=== PATIENT | female | born 1930 | race Caucasian/White ===

== ENCOUNTER 2018-05-02 15:29 | Emergency (ER) | payer MEDICARE ==
[~2018-05-02] VITALS: Ht 175.3 cm; Wt 59.0 kg
--- OUTSIDE RECORDS SUMMARY | 2018-05-02 15:31 | XMS REPORT | Clinical Summary ---
Author Author [facility] Organization [facility] Address Unknown Phone Unavailable Care Team Providers Care Vegetable Sorter Name Role Phone Zenobia Musa MD PCP Allergies Comments Active Allergy Reactions Severity Noted Date Cephalexin Swelling 02/20/2016 Medications End Date Status Medication Sig Dispensed Refills Start Date Active lisinopril 0 (PRINIVIL,ZESTRIL) 20 MG 6 tablet Active fenofibrate (LOFIBRA) 160 0 MG tablet 6 Active IRON,CARBONYL/VIT C/VIT Take by 0 B12/FA (IRON 100 PLUS mouth. ORAL) Active vitamin E 400 UNIT Take 400 0 capsule Units by mouth daily. Active ascorbic acid, vitamin C, Take 100 mg 0 (vitamin C) 100 MG tablet by mouth daily. Active omega-3 fatty acids (FISH Take by 0 OIL) 300 mg capsule mouth. Active cyanocobalamin (B-12 Take 500 mcg 0 DOTS) 500 MCG tablet by mouth daily. Active aspirin (ECOTRIN) 81 MG Take 81 mg by 0 enteric coated tablet mouth daily. Active PNV WITH Take by 0 CA,NO.72/IRON,CARB/FA mouth. ( PLUS ORAL) Active Problems Problem Noted Date Status post total right knee replacement 04/28/2016 Chronic pain of right knee 02/20/2016 Encounters Care Team Description Date Type Specialty Zenobia Musa MD Chronic sinusitis, unspecified location; Allergic rhinitis, unspecified chronicity, unspecified seasonality, unspecified trigger 10/17/2017 Hospital Radiology Encounter Zenobia Musa MD Chronic sinusitis, unspecified location (Primary Dx); Allergic rhinitis, unspecified chronicity, unspecified seasonality, unspecified trigger 10/12/2017 Transcribe Access Orders Zenobia Musa MD Left shoulder pain, unspecified chronicity 09/05/2017 Hospital Radiology Encounter Zenobia Musa MD Left shoulder pain, unspecified chronicity (Primary Dx) 09/05/2017 Transcribe Access Orders Zenobia Musa MD 08/16/2017 Hospital Pulmonology Encounter Zenobia Musa MD H/O: asbestos exposure (Primary Dx) 08/09/2017 Transcribe Access Orders Zenobia Musa MD Asbestos exposure (Primary Dx) 07/28/2017 Transcribe Access Orders after 05/01/2017 Family History Medical History Relation Name Comments No Known Problems Father Alzheimer's disease Mother Relation Name Status Comments Father Mother Social History Date Tobacco Use Types Packs/Day Years Used Former Smoker Cigarettes 0.25 Alcohol Use Drinks/Week oz/Week Comments No Sex Assigned at Date Recorded Not on file Industry Job Start Date Occupation Not on file Not on file Not on file Travel End Travel History Travel Start No recent travel history available. Last Filed Vital Signs Not on file Plan of Treatment Health Maintenance Due Date Last Done Comments SHINGLES VACCINES (1 of 01/01/1982 2) PNEUMOCOCCAL 01/01/1997 POLYSACCHARIDE VACCINE AGE 65 AND OVER PNEUMOCOCCAL-13 01/01/1997 INFLUENZA VACCINE 11/23/2017 Procedures Comments Procedure Name Priority Date/Time Associated Diagnosis CT SINUS WO CONTRAST Routine 10/17/2017 Chronic sinusitis, 8:35 AM CDT unspecified location Allergic rhinitis, unspecified chronicity, unspecified seasonality, unspecified trigger XR SHOULDER 2+ VW LEFT Routine 09/05/2017 Left shoulder pain, 8:14 AM CDT unspecified chronicity DIFFUSION CAPACITY Routine 08/16/2017 H/O: asbestos exposure 10:29 AM CDT BODY PLETHYSMOGRAPHIC Routine 08/16/2017 H/O: asbestos exposure LUNG VOLUMES 10:29 AM CDT SPIROMETRY PRE AND POST Routine 08/16/2017 H/O: asbestos exposure WITH BRONCHILATOR 10:29 AM CDT after 05/01/2017 Results * CT Sinus Wo Contrast (10/17/2017 8:35 AM CDT) Narrative Performed At EXAMINATION:CT SINUS WO CONTRAST HM [facility] CT IMAGING WAS PERFORMED WITH ITERATIVE RECONSTRUCTION TECHNIQUE AND/OR AUTOMATED EXPOSURE CONTROL TO REDUCE RADIATION DOSE. CLINICAL HISTORY:J32.9 Chronic sinusitisunspecified, J30.9 Allergic rhinitisunspecified, SINUSITIS COMPARISON:None. FINDINGS: 1. There is minimal mucosal thickening in the superior medial aspect of the maxillary sinuses bilaterally. There is very mild mucosal thickening in the ethmoid sinus bilaterally and minimal mucosal thickening in the sphenoid sinus. The frontal sinus is clear. 2.There is mild deviation of the nasal septum to the left. There is a short paradoxical configuration of the middle padmini on the right with a somewhat hypoplastic middle pamdini and turbinate on the left. The frontal sinus is relatively hypoplastic. The maxillary sinus ostium, infundibulum and middle meatus are patent bilaterally as are the frontal sinus and sphenoid sinus drainage pathways. 3.There is mild mucosal thickening or fluid in the mastoid tip on the right. 4.There are marked degenerative changes in the temporomandibular joints bilaterally. 5.There are periapical cystic changes involving the remaining left maxillary bicuspid tooth. 6.There are marked degenerative changes in the cervical spine. IMPRESSION: Anatomic variation and minor inflammatory changes as described above. [facility]-[id number] Procedure Note Hm Interface, Radiology Results Incoming - 10/17/2017 8:56 AM CDT EXAMINATION: CT SINUS WO CONTRAST CT IMAGING WAS PERFORMED WITH ITERATIVE RECONSTRUCTION TECHNIQUE AND/OR AUTOMATED EXPOSURE CONTROL TO REDUCE RADIATION DOSE. CLINICAL HISTORY: J32.9 Chronic sinusitis unspecified, J30.9 Allergic rhinitis unspecified, SINUSITIS COMPARISON: None. FINDINGS: 1. There is minimal mucosal thickening in the superior medial aspect of the maxillary sinuses bilaterally. There is very mild mucosal thickening in the ethmoid sinus bilaterally and minimal mucosal thickening in the sphenoid sinus. The frontal sinus is clear. 2. There is mild deviation of the nasal septum to the left. There is a short paradoxical configuration of the middle padmini on the right with a somewhat hypoplastic middle padmini and turbinate on the left. The frontal sinus is relatively hypoplastic. The maxillary sinus ostium, infundibulum and middle meatus are patent bilaterally as are the frontal sinus and sphenoid sinus drainage pathways. 3. There is mild mucosal thickening or fluid in the mastoid tip on the right. 4. There are marked degenerative changes in the temporomandibular joints bilaterally. 5. There are periapical cystic changes involving the remaining left maxillary bicuspid tooth. 6. There are marked degenerative changes in the cervical spine. IMPRESSION: Anatomic variation and minor inflammatory changes as described above. [facility]-[id number] Performing Organization Address [facility] Phone Number [facility] [address] [place] [address] * XR Shoulder 2+ Vw Left (09/05/2017 8:14 AM CDT) Narrative Performed At EXAMINATION:XR SHOULDER 2VW LEFT [facility]IANT CLINICAL HISTORY:M25.512 Pain in left shoulder, m25.512 COMPARISON:None available at this time. IMPRESSION: 1. No fracture, malalignment, or osseous destructive lesion. 2. Joint spaces are maintained. No significant degenerative changes. 3. Soft tissues are unremarkable. [facility]-[id number] Procedure Note Hm Interface, Radiology Results Incoming - 09/05/2017 8:23 AM CDT EXAMINATION: XR SHOULDER 2 VW LEFT CLINICAL HISTORY: M25.512 Pain in left shoulder, m25.512 COMPARISON: None available at this time. IMPRESSION: 1. No fracture, malalignment, or osseous destructive lesion. 2. Joint spaces are maintained. No significant degenerative changes. 3. Soft tissues are unremarkable. [facility]-[id number] Performing Organization Address [facility] Phone Number [facility] [address] [place] [address] * Diffusion capacity (08/16/2017 10:29 AM CDT) Narrative Performed At * Body Plethysmographic lung volumes (08/16/2017 10:29 AM CDT) Narrative Performed At * Spirometry pre & post w/ bronchodilator (08/16/2017 10:29 AM CDT) Narrative Performed At after 05/01/2017 Insurance Payer Benefit Subscriber ID Type Phone Address Plan / Group AETNA MEDICARE AETNA xxxxxxxx HMO MEDICARE HMO/PPO [facility] Advance Directives Patient has advance care planning documents on file. For more information, ravindra hernández contact: Mauro Cedeño [address] [place] [address]
[2018-05-02] MEDS ORDERED: SODIUM CHLORIDE 0.9% 1000ML 1,000 ML IV STA (15:51)
[2018-05-02 16:41] LABS: BASOPHILS # (AUTO) 0.1 (0.0-0.1); BASOPHILS % 0.6 % (0.0-1.0); EOSINOPHILS # (AUTO) 0.5 (0.0-0.4); HEMATOCRIT 29.5 % (34.2-44.1); HEMOGLOBIN 9.5 g/dL (12.0-16.0); LYMPHOCYTES # (AUTO) 2.4 (1.0-3.2); LYMPHOCYTES % 13.8 % (18.0-39.1); MEAN CORPUSCULAR HEMOGLOBIN 30.9 pg (28-32); MEAN CORPUSCULAR HGB CONC 32.2 g/dL (31-35); MEAN CORPUSCULAR VOLUME 96.1 fL (81-99); MONOCYTES # (AUTO) 1.2 (0.2-0.8); MONOCYTES % 6.6 % (4.4-11.3); NEUTROPHILS # (AUTO) 13.2 (2.1-6.9); NEUTROPHILS % 74.5 % (38.7-80.0); PLATELET COUNT 375 x10e3/uL (140-360); RED BLOOD COUNT 3.07 x10e6/uL (3.6-5.1); RED CELL DISTRIBUTION WIDTH 14.6 % (11.7-14.4)
[2018-05-02 16:50] LABS: INR 0.95; PARTIAL THROMBOPLASTIN TIME 28.2 seconds (23.8-35.5); PROTHROMBIN TIME 13.5 seconds (11.9-14.5)
[2018-05-02 17:04] LABS: ALBUMIN 3.6 g/dL (3.5-5.0); ALBUMIN/GLOBULIN RATIO 1.1 (0.8-2.0); ANION GAP 17.5 mmol/L (8-16); CALCIUM 9.5 mg/dL (8.4-10.2); CREATININE, SERUM 1.41 mg/dL (0.57-1.11); POTASSIUM 4.5 mmol/L (3.5-5.1)
[2018-05-02 17:12] LABS: CREATINE KINASE MB 1.6 ng/mL (0-5.0)
--- NOTE | 2018-05-02 17:17 | Diagnostic Imaging Report ---
EXAMINATION: CHEST SINGLE (PORTABLE) INDICATION: Pain. COMPARISON: None FINDINGS: TUBES and LINES: None. LUNGS: Bibasilar subsegmental atelectasis. There is no evidence of pneumonia or pulmonary edema. PLEURA: No pleural effusion or pneumothorax. HEART AND MEDIASTINUM: The cardiomediastinal silhouette is unremarkable. Calcification of the aortic arch. BONES AND SOFT TISSUES: No acute osseous lesion. UPPER ABDOMEN: No free air under the diaphragm. IMPRESSION: No acute thoracic abnormality. Signed by: Dr. Gonzalo Neff M.D. on 05/02/2018 5:13 PM
--- NOTE | 2018-05-02 18:58 | NUR ---
RECEIVED REPORT FROM KARLA BARRAZA
[2018-05-02 19:11] LABS: BILIRUBIN,URINE NEGATIVE (NEGATIVE); CLARITY,URINE HAZY (CLEAR); COLOR,URINE YELLOW (YELLOW); KETONES,URINE NEGATIVE (NEGATIVE); LEUKOCYTE ESTERASE ,URINE TRACE (NEGATIVE); NITRITE,URINE NEGATIVE (NEGATIVE); PROTEIN,URINE DIPSTICK NEGATIVE (NEGATIVE); URINE UROBILINOGEN 0.2 mg/dL (0.2 - 1)
[2018-05-02 19:12] LABS: BACTERIA,URINE MODERATE /HPF; EPITHELIAL CELLS,URINE MODERATE /LPF; RBC,URINE 0-5 /HPF (0-5)
--- NOTE | 2018-05-02 19:13 | Diagnostic Imaging Report ---
EXAM: CT Abdomen and Pelvis WITH contrast INDICATION: Pain. COMPARISON: None. TECHNIQUE: Abdomen and pelvis were scanned utilizing a multidetector helical scanner from the lung base to the pubic symphysis after administration of IV contrast. Coronal and sagittal reformations were obtained. Routine protocol was performed. Scan was performed when during portal venous phase. IV CONTRAST: 100 cc Isovue-370 ORAL CONTRAST: Water RADIATION DOSE: Total DLP: Not provided. Estimated effective dose: (DLP x 0.015 x size factor) mSv COMPLICATIONS: None FINDINGS: LINES and TUBES: None. LOWER THORAX: Unremarkable HEPATOBILIARY: Mild complex cysts particularly in the left hepatic lobe, the largest measuring 2.9 cm on image 14 series 2. Mild dilatation of the central intrahepatic biliary tree. Moderate dilatation of the common bile duct up to 1.7 cm, likely reflecting reservoir effect. GALLBLADDER: Surgically absent. SPLEEN: No splenomegaly. PANCREAS: No focal masses or ductal dilatation. ADRENALS: 1.1 cm left adrenal nodule is indeterminate. KIDNEYS/URETERS: Kidneys enhance symmetrically. No hydronephrosis. 5 mm low-attenuation lesion in the posterior interpolar region of the left kidney is too small to be characterized, however, most likely to represent a small cyst. No stones. GI TRACT: No abnormal distention, wall thickening, or evidence of bowel obstruction. Diffuse diverticulosis, most markedly involving the sigmoid colon without CT evidence of acute diverticulitis. Appendix is visualized. PELVIC ORGANS/BLADDER: Status post hysterectomy. LYMPH NODES: No lymphadenopathy. VESSELS: There is moderate atherosclerotic disease in the aorta and major arterial branches. PERITONEUM / RETROPERITONEUM: No free air or fluid. BONES: There are degenerative changes in the lumbar spine. SOFT TISSUES: Unremarkable. IMPRESSION: 1. Colonic diverticulosis without diverticulitis. 2. Moderate biliary dilatation suggestive of reservoir effect. Signed by: Dr. Gonzalo Neff M.D. on 05/02/2018 7:10 PM
[2018-05-02] MEDS ORDERED: SODIUM CHLORIDE 0.9% 50ML 50 ML ONE (20:02)
[2018-05-02] MEDS ORDERED: IOPAMIDOL 370 MG/ML 200 ML INFUS..BTL INJ ONE (20:03)
== END 2018-05-02 19:58 | disposition home or self-care (01) ==
LOC: ER 15:29
DX: R10.13 Epigastric pain (principal); R11.0 Nausea; N39.0 Urinary tract infection, site not specified; I10 Essential (primary) hypertension; E78.5 Hyperlipidemia, unspecified
CPT/HCPCS: 36415; 71045; 74177; 80048; 80053; 81001; 82150; 82550; 82553; 83605; 83690; 83735; 83880; 84484; 85025; 85610; 85730; 87040; 87086; 93005; 99284; J7030; Q9967